=== PATIENT | female | born 1955 | race Caucasian/White ===

== ENCOUNTER 2017-05-28 13:55 | Observation (INO) | payer MEDICAID ==
[~2017-05-28] VITALS: Ht 170.2 cm; Wt 59.0 kg
--- NOTE | ~2017-05-28 | HP ---
PATIENT: CARMELO ALEXANDRE MEDICAL RECORD: [id number] ACCOUNT: [id number] LOCATION:D.[id number] : [id number] ADMISSION DATE: 05/28/17 HISTORY AND PHYSICAL EXAMINATION CHIEF COMPLAINT: Dysphagia. HISTORY OF PRESENT ILLNESS: A 61-year-old white female patient, currently [facility] I [facility] her, has been complaining of dysphagia, unable to swallow solid foods, we ordered a barium swallow today. Dr. Busby, radiologist called to report that she has a huge esophageal stricture, very high risk for aspiration, unable to swallow and needs an EGD for dilation. At this time, we are admitting to [facility] for GI consult and further workup. PAST MEDICAL HISTORY: Depression, diabetes, GERD, hyperlipidemia, neuropathy. PAST SURGICAL HISTORY: Cholecystectomy, hysterectomy, ureteral stenosis status post stenting. MEDICATIONS: See med rec. ALLERGIES: CODEINE, LISINOPRIL, AND PENICILLIN. SOCIAL HISTORY: The patient is . FAMILY HISTORY: Coronary artery disease. REVIEW OF SYSTEMS: GENERAL: No change in weight. HEENT: No visual change. RESPIRATORY: No cough, shortness of breath, or wheeze. CARDIOVASCULAR: No chest pain or palpitations. GASTROINTESTINAL: Positive for dysphagia. GENITOURINARY: No dysuria. NEUROLOGIC: Denies headache. Positive for generalized weakness. PHYSICAL EXAMINATION: GENERAL: No acute distress. HEENT: Normocephalic, atraumatic. NECK: Supple. LUNGS: Clear to auscultation bilaterally. CARDIOVASCULAR: Regular rate and rhythm, no murmur. ABDOMEN: Soft, nontender to palpation. Bowel sounds positive. EXTREMITIES: No clubbing, cyanosis, or edema. NEUROLOGIC: Awake, alert, oriented times 3. ASSESSMENT: 1. Dysphagia. 2. Generalized weakness. 3. Diabetes. PLAN: We will admit to [place], consult GI for EGD, make n.p.o. Other orders as written on chart. HISTORY AND PHYSICAL [id number] CARMELO ALEXANDRE TRANSINT:[id number] Voice Confirmation ID: [id number] DOCUMENT ID: [id number] VENKATESH ESTRADA MD at 1803 CC: [id number] DICTATION DATE: 05/28/17 1700 MEDICAL GENETICS DIRECTOR: 05/28/17 1726 DIS IN 05/30/17 [facility] [address] [place] [address]
[2017-05-28 17:27] LABS: BASOPHILS 1.1 % (0-2); EOSINOPHILS 3.4 % (0-7); HEMATOCRIT 30.2 % (36.0-48.0); HEMOGLOBIN 9.3 g/dL (12-16); IMMATURE GRANULOCYTES 0.5 % (0-5); LYMPHOCYTES 45.8 % (15-50); MCH 25.4 pg (26.0-34.0); MCHC 30.8 g/dL (31.0-37.0); MCV 82.5 fL (80.0-100.0); MEAN PLATELET VOLUME 8.8 fL (7.4-10.4); MONOCYTES 9.7 % (2-11); NEUTROPHILS 39.5 % (40-80); PLATELET COUNT 459 10x3/uL (130-400); RBC 3.66 10x6/uL (4.00-5.40); RDW 15.4 % (11.5-14.5); WBC 7.5 10x3/uL (4.8-10.8)
[2017-05-28 17:51] LABS: ALBUMIN 3.3 g/dL (3.4-5.0); ALKALINE PHOSPHATASE 75 U/L (46-116); ALT (SGPT) 16 U/L (10-68); BILIRUBIN - TOTAL 0.21 mg/dL (0.2-1.3); CALC OSMOLALITY 283 mosm/kg (275-300); CALCIUM 10.2 mg/dL (8.5-10.1); CARBON DIOXIDE 27.4 mmol/L (21.0-32.0); CHLORIDE - SERUM 103 mmol/L (98-107); CREATININE - SERUM 0.7 mg/dL (0.6-1.3); GLUCOSE 170 mg/dL (74-106); POTASSIUM - SERUM 3.9 mmol/L (3.5-5.1); SODIUM 138 mmol/L (136-145); UREA NITROGEN 25 mg/dL (7-18); eGFR NON AFRICAN AMERICAN 90 mL/min (90-120)
[2017-05-28 17:54] LABS: INR 0.94 (0.85-1.17); PROTIME 12.2 SECONDS (11.6-15.0)
[2017-05-28 18:01] LABS: APPEARANCE HAZY (CLEAR); BILIRUBIN NEGATIVE (NEGATIVE); COLOR YELLOW (YELLOW); GLUCOSE NEGATIVE (NEGATIVE); KETONE NEGATIVE (NEGATIVE); NITRITE NEGATIVE (NEGATIVE); PROTEIN TRACE mg/dL (NEGATIVE); SPECIFIC GRAVITY 1.015 (1.005-1.020); UROBILINOGEN NORMAL (NORMAL)
[2017-05-28 18:02] LABS: BACTERIA MANY /hpf (NONE SEEN); RED CELLS - URINE 0-5 /hpf (0-5); YEAST >1+ WITH HYPHAE /hpf (NONE SEEN)
[2017-05-28 18:03] LABS: MUCUS <1+ /lpf (NONE SEEN)
[2017-05-29 00:06] VITALS: BMI 20.4
[2017-05-29 01:29] VITALS: BP 168/67
[2017-05-29 04:12] LABS: BASOPHILS 0.8 % (0-2); EOSINOPHILS 4.1 % (0-7); HEMATOCRIT 29.5 % (36.0-48.0); HEMOGLOBIN 9.1 g/dL (12-16); IMMATURE GRANULOCYTES 0.5 % (0-5); MCH 25.3 pg (26.0-34.0); MCHC 30.8 g/dL (31.0-37.0); MCV 82.2 fL (80.0-100.0); MEAN PLATELET VOLUME 8.7 fL (7.4-10.4); MONOCYTES 10.8 % (2-11); NEUTROPHILS 45.8 % (40-80); PLATELET COUNT 434 10x3/uL (130-400); RBC 3.59 10x6/uL (4.00-5.40); RDW 15.3 % (11.5-14.5)
[2017-05-29 04:22] LABS: ALBUMIN 2.9 g/dL (3.4-5.0); ALKALINE PHOSPHATASE 69 U/L (46-116); ALT (SGPT) 16 U/L (10-68); BILIRUBIN - TOTAL 0.23 mg/dL (0.2-1.3); CALC OSMOLALITY 286 mosm/kg (275-300); CALCIUM 9.4 mg/dL (8.5-10.1); CARBON DIOXIDE 28.1 mmol/L (21.0-32.0); CHLORIDE - SERUM 106 mmol/L (98-107); CREATININE - SERUM 0.8 mg/dL (0.6-1.3); GLUCOSE 157 mg/dL (74-106); POTASSIUM - SERUM 3.8 mmol/L (3.5-5.1); PROTEIN - SERUM 6.2 g/dL (6.4-8.2); SODIUM 141 mmol/L (136-145); UREA NITROGEN 21 mg/dL (7-18); eGFR NON AFRICAN AMERICAN 77 mL/min (90-120)
[2017-05-29 04:33] VITALS: BP 136/60
[2017-05-29 06:18] LABS: INR 1.04 (0.85-1.17); PROTIME 13.2 SECONDS (11.6-15.0)
[2017-05-29 07:57] VITALS: BP 129/60
[2017-05-29 12:58] VITALS: Ht 170.2 cm; Wt 59.0 kg
[2017-05-29 13:07] VITALS: BP 135/72
[2017-05-29 20:00] VITALS: BP 113/59
[2017-05-30 04:00] VITALS: BP 132/66
[2017-05-30 04:25] LABS: BASOPHILS 0.6 % (0-2); EOSINOPHILS 3.3 % (0-7); HEMATOCRIT 30.3 % (36.0-48.0); HEMOGLOBIN 9.3 g/dL (12-16); IMMATURE GRANULOCYTES 0.3 % (0-5); LYMPHOCYTES 34.4 % (15-50); MCH 25.4 pg (26.0-34.0); MCHC 30.7 g/dL (31.0-37.0); MCV 82.8 fL (80.0-100.0); MEAN PLATELET VOLUME 8.8 fL (7.4-10.4); MONOCYTES 8.7 % (2-11); NEUTROPHILS 52.7 % (40-80); PLATELET COUNT 436 10x3/uL (130-400); RBC 3.66 10x6/uL (4.00-5.40); RDW 15.2 % (11.5-14.5); WBC 7.3 10x3/uL (4.8-10.8)
[2017-05-30 04:45] LABS: ALKALINE PHOSPHATASE 76 U/L (46-116); ALT (SGPT) 16 U/L (10-68); BILIRUBIN - TOTAL 0.19 mg/dL (0.2-1.3); CALC OSMOLALITY 284 mosm/kg (275-300); CALCIUM 9.4 mg/dL (8.5-10.1); CARBON DIOXIDE 26.5 mmol/L (21.0-32.0); CHLORIDE - SERUM 108 mmol/L (98-107); CREATININE - SERUM 0.8 mg/dL (0.6-1.3); GLUCOSE 139 mg/dL (74-106); POTASSIUM - SERUM 3.8 mmol/L (3.5-5.1); PROTEIN - SERUM 6.4 g/dL (6.4-8.2); SODIUM 142 mmol/L (136-145); eGFR NON AFRICAN AMERICAN 77 mL/min (90-120)
[2017-05-30 04:53] LABS: UREA NITROGEN 13 mg/dL (7-18)
[2017-05-30 07:44] VITALS: BP 111/55
[2017-05-30] MEDS ORDERED: ZOLOFT100 MG PO (10:49)
[2017-05-30] MEDS ORDERED: REGLAN5 MG PO (10:49)
[2017-05-30] MEDS ORDERED: ASPIRIN81 MG PO ×2 (10:53→14:18)
[2017-05-30] MEDS ORDERED: ZOFRAN4 MG PO (10:55)
[2017-05-30 11:36] LABS: APPEARANCE HAZY (CLEAR); BILIRUBIN NEGATIVE (NEGATIVE); COLOR STRAW (YELLOW); GLUCOSE 100 mg/dL (NEGATIVE); KETONE NEGATIVE (NEGATIVE); NITRITE POSITIVE (NEGATIVE); PROTEIN NEGATIVE (NEGATIVE); UROBILINOGEN NORMAL (NORMAL)
[2017-05-30 11:37] LABS: BACTERIA MODERATE /hpf (NONE SEEN); MUCUS <1+ /lpf (NONE SEEN); RED CELLS - URINE OCC /hpf (0-5); YEAST OCC /hpf (NONE SEEN)
[2017-05-30 12:21] VITALS: BP 140/76
[2017-05-30] MEDS ORDERED: PEPCID20 MG PO (14:20)
[2017-05-30] MEDS ORDERED: MIRALAX17 GM PO (14:20)
[2017-05-30] MEDS ORDERED: FLORAJEN3 CAPS460 MG PO (14:20)
[2017-05-30] MEDS ORDERED: CARAFATE1 G/10 ML PO (14:20)
[2017-05-30] MEDS ORDERED: COLACE100 MG PO (14:21)
[2017-05-30] MEDS ORDERED: PROTONIX40 MG PO (14:21)
[2017-05-30] MEDS ORDERED: LEVAQUIN750 MG PO (14:22)
[2017-05-30] MEDS ORDERED: HYDROCODON-ACE1 EAC7 PO (14:24)
== END 2017-05-30 17:16 ==
LOC: D.ER 13:55 → OBSVTIME 17:41 → D.EDHOLD 17:41 → D.MS 17:41
PROVIDERS: Family Medicine; Nurse Practitioner Family
DX: K22.2 Esophageal obstruction (principal); R53.1 Weakness; F32.9 Major depressive disorder, single episode, unspecified; K22.10 Ulcer of esophagus without bleeding; R13.10 Dysphagia, unspecified